=== PATIENT | male | born 1970 | race Caucasian/White ===

== ENCOUNTER → 2021-03-06 07:04 | Outpatient (CLI) | payer OTHER, SELFPAY ==
--- NOTE | ~2021-03-06 | MR_ITS ---
EXAMINATION: MR shoulder RT wo con DATE: 03/06/2021 08:04 INDICATION: Right rotator cuff tendinitis pain and limited range of motion. TECHNIQUE: Magnetic resonance imaging (MRI) of the right shoulder was performed without intravenous c ontrast. Sequences included axial PD-weighted FS FSE, coronal oblique PD-weighted FS FSE, coronal obl ique T2-weighted FS FSE, sagittal PD-weighted FS FSE, and sagittal T1-weighted SE. COMPARISON: None. FINDINGS: Coracoacromial arch: The acromion undersurface is curved in morphology (type II). The coracoacromial ligament is normal. M ild acromioclavicular osteoarthritis with tiny inferiorly directed osteophyte at the lateral head of the clavicle. Rotator cuff: Moderate tendinopathy of the supraspinatus and conjoined portion of the supraspinatus and infraspinat us tendons. Small moderate severity partial-thickness articular sided tear at the junction of the sup erior and middle facet footplates of the conjoined tendon which involves approximately 50% the tendon thickness. The tear measures 4 mm AP and 2 mm medial to lateral. The more posterior infraspinatus te ndon and teres minor tendons are normal. The subscapularis tendon is normal. Normal rotator cuff musc le bulk and signal. Biceps tendon, glenoid labrum and glenohumeral cartilage: Long head of the biceps tendon is normal. Glenoid labrum is normal with normal anterosuperior sublabr al foramen. Mild partial-thickness cartilage loss with smooth chondral surface at the apex of the hum eral head. Glenoid cartilage is normal. Fluid: Physiologic amount of fluid in the glenohumeral joint and biceps tendon sheath. No loose osteochondra l bodies. Small amount of fluid in the subacromial/subdeltoid bursa consistent with mild bursitis. Bones: Normal marrow signal with no edema, fracture or abnormal marrow replacing process. IMPRESSION: 1. Moderate tendinopathy of the supraspinatus and conjoined supraspinatus and infraspinatus tendons w ith small moderate severity tear at the insertion of the conjoined portion of the tendons. 2. Mild subacromial/subdeltoid bursitis. Reviewed, dictated and finalized at location A. IMPRESSION: 1. Moderate tendinopathy of the supraspinatus and conjoined supraspinatus and i nfraspinatus tendons with small moderate severity tear at the insertion of the conjoined portion of the tendons. 2. Mild subacromial/subdeltoid bursitis.
--- NOTE | ~2021-03-06 | MR_ITS ---
EXAMINATION: MR shoulder LT wo con DATE: 03/06/2021 08:08 INDICATION: Tendinitis of the left rotator cuff. TECHNIQUE: Magnetic resonance imaging (MRI) of the left shoulder was performed without intravenous co ntrast. Sequences included axial PD-weighted FS FSE, coronal oblique PD-weighted FS FSE, coronal obli que T2-weighted FS FSE, sagittal PD-weighted FS FSE, and sagittal T1-weighted SE. COMPARISON: None. FINDINGS: Coracoacromial arch: The acromion undersurface is curved in morphology (type II). The coracoacromial ligament is normal. M inimal acromioclavicular osteoarthritis. Rotator cuff: Moderate tendinopathy of the distal supraspinatus and conjoined portion of the supraspinatus and infr aspinatus tendons. There is a very small near full-thickness supraspinatus tendon tear along the tear most aspect of the superior facet. This appears to involve the articular surface but without retract ion. The tear extends 3 mm AP along the posterior aspect of the superior facet footplate. A minimal t hickness of the bursal side of the tendon appears to remain intact. There is some mild erosive and cy stic change along the immediately underlying footplate suggesting chronic rotator cuff disease. The m ore posterior infraspinatus and teres minor tendons as well as the subscapularis tendon are normal. N ormal rotator cuff muscle bulk and signal. Biceps tendon, glenoid labrum and glenohumeral cartilage: Long head of the biceps tendon is normal. Glenoid labrum is normal with normal anterosuperior subling ual foramen. Mild partial-thickness cartilage loss with smooth chondral surface along the apex of the humeral head. Fluid: Physiologic amount of fluid in the glenohumeral joint and biceps tendon sheath. No loose osteochondra l bodies. Small amount of fluid in the subacromial/subdeltoid bursa consistent with mild bursitis. Th ere is also a 7 x 4 x 3 mm ganglion cyst which appears to arise near the rotator cuff tear extending caudally along the long head biceps tendon sheath. Bones: Normal marrow signal with no fracture or pathologic marrow replacing process. IMPRESSION: 1. Moderate tendinopathy and very small, moderate severity articular sided tear at the superior facet footplate of the posterior supraspinatus tendon. 2. Mild subacromial/subdeltoid bursitis. Reviewed, dictated and finalized at location A.
== END ==
PROVIDERS: PCP Physician Assistant
DX: M75.82 Other shoulder lesions, left shoulder (principal); M75.81 Other shoulder lesions, right shoulder; S46.811A Strain of other muscles, fascia and tendons at shoulder and upper arm level, right arm, initial encounter; M75.52 Bursitis of left shoulder; M75.51 Bursitis of right shoulder
CPT/HCPCS: 73221